=== PATIENT | female | born 1955 | race Hispanic/Latino ===

== ENCOUNTER 2017-05-25 09:09 | Day surgery (SDC) | payer OTHER ==
[2017-05-25] MEDS ORDERED: Lactated Ringer's 1,000 ML IV ONE (09:53)
[2017-05-25] MEDS ORDERED: Lidocaine 1% Inj (20ml) IJ ONE ×3 (10:46→12:40)
[2017-05-25] MEDS ORDERED: Bupivacaine 0.5% 50 ML IJ ONE ×4 (10:46→14:11)
[2017-05-25] MEDS ORDERED: ceFAZolin 1 GM in Sodium Chloride 0.9% 100 ML IVPB ONE (10:46)
--- NOTE | 2017-05-25 10:54 | CP.SDSHP ---
Same Day Surgery H & P - History Proposed Procedure: Right foor dorsal extectomy of 1st met-cuneiform joint with 3rd met osteotomy and 2nd and 3rd hammertoe repair and plantar plate repair Pre-Op Diagnosis: Hammertoe digits, Exostosis of right foot, plantar plate tear on right foot - Allergies Allergies: Allergies No Known Allergies Allergy (Verified 08/12/16 09:39) - Physical Exam Vital Signs: Vital Signs 05/25/17 05/25/17 09:31 09:34 Temperature 98.4 F Pulse Rate 65 65 Respiratory 20 Rate Blood Pressure 141/87 O2 Sat by Pulse 97 Oximetry Mental Status: Alert & Oriented x3 - {Optional Preform as Required} Integument: WNL Ortho: Other - Impression Impression: Pt was seen and examined in SDS. Pt NPO status was confirmed. All Pre-op testing and clearance was in the chart. Pt has exhausted all conservative treatment at this time and is opting for surgical intervention. Pt was explained procedure and post-operative course. All pt's questions were answered to satisfaction. No guarantees were made. Pt understands all risks, benefits and complications of procedure. Pt will follow-up with Dr. Gamez - Date & Time Date: 05/25/17 Time: 10:57 Short Stay Discharge - Short Stay Discharge Admitting Diagnosis/Reason for Visit: M20.4 M25.775 S93.14 Disposition: HOME/ ROUTINE Referrals: Oli Costa MD [Primary Care Provider] - Dick Gamez MD [Staff Provider] - Additional Instructions (Diet, Activity): -Patient in good/stable condition for discharge home. Pt to resume medications per medical reconciliation. Resume regular diet. Please keep dressing clean, dry, & intact to surgical site, use plastic bag over bandage for showering, wear post op shoe at all times when ambulating, call clinic if you see signs of infection (redness, swelling, malodor), please make an appointment to see Dr. Gamez in office/clinic within 1 week for post-op check Progress Note/Discharge Note with Instructions: - Patient evaluated bedside in recovery s/p surgical procedure. - After surgical procedure patient in NAD - (+) Void, (+) Appetite - Capillary refill time <3s and NVSI intact. - Patient denies complaints at this time - Post operative instructions and plan of care explained to patient at length. - Pt. acknowledges understanding. - Patient stable for DC per podiatric surgery
[2017-05-25] MEDS ORDERED: Sodium Chloride 0.9% 1,000 ML IV SCH (11:00)
--- NOTE | 2017-05-25 11:01 | CP.PCM.PN ---
Subjective - Date & Time of Evaluation Date of Evaluation: 05/25/17 Time of Evaluation: 10:58 - Subjective Subjective: 61 y/o female with PMHx of crohn's disease seen at bedside in [facility] for right foot surgery. Pt states that about 2 weeks ago she hit her foot against a walker and her 5th toe is little tender but denies of any severe complications. Pt states that she is having her toes fixed and a bump removed from the right foot. Pt states that she has been NPO since 7PM yesterday. Pt denies of any other pedal complains at this moment. Pt denies of having any reaction to anesthesia as well. PMHx: Crohn's disease PSHx: denies Allergies: N.K.D.A Objective - Vital Signs/Intake and Output Vital Signs (last 24 hours): Temp Pulse Resp BP Pulse Ox 98.4 F 65 20 141/87 97 05/25/17 09:31 05/25/17 09:34 05/25/17 09:31 05/25/17 09:31 05/25/17 09:31 - Medications Medications: Current Medications Cefazolin Sodium 1 gm/ Sodium (Chloride) 100 mls @ 100 mls/hr IVPB ONCE ONE Stop: 05/25/17 11:45 Sodium Chloride (Sodium Chloride 0.9%) 1,000 mls @ 110 mls/hr IV .Q9H6M [facility] Stop: 05/26/17 10:47 - Constitutional Appears: Well, Non-toxic, No Acute Distress - Extremities Exam Additional comments: VASC: DP/PT pulses are palpable 2/4 b/l, RESERVATIONS MANAGER: < 3 sec to all digits, TG: warm to cool from proximal to distal, no pitting or non-pitting edema noted DERM: no interdigital maceration, no open lesions, no erythema, no clinical suspicion of infection NEURO: Protective sensation grossly intact ORTHO: Hammering of the digits with lateral deviation of the 3rd digit noted on the right foot, dorsal exastosis noted at 1st met-cuneiform joint - Neurological Exam Neurological Exam: Alert, Awake, Oriented x3 - Psychiatric Exam Psychiatric exam: Normal Affect, Normal Mood Assessment and Plan - Assessment and Plan (Free Text) Assessment: 61 y/o female seen at bedside in [facility] for Right foot surgery Plan: Pt was seen and examined in SDS Pt NPO status was confirmed All Pre-op testing and clearance was in the chart Pt has exhausted all conservative treatment at this time and is opting for surgical intervention Pt was explained procedure and post-operative course All pt's questions were answered to satisfaction No guarantees were made Pt understands all risks, benefits and complications of procedure Pt will follow-up with Dr. Gamez
[2017-05-25] MEDS ORDERED: Lidocaine 1% Inj (20ml) ONE (11:28)
[2017-05-25] MEDS ORDERED: Propofol 10 mg/ml Inj (20 ML) ONE ×3 (11:32→13:26)
[2017-05-25] MEDS ORDERED: Midazolam 2 MG/2 ML VIAL ONE (12:07)
[2017-05-25] MEDS ORDERED: HYDROmorphone 0.5 mg/0.5 ml ISec IVP PRN (14:29)
[2017-05-25] MEDS ORDERED: Lactated Ringer's 1,000 ML IV SCH (14:29)
[2017-05-25] MEDS ORDERED: Oxycodone/Acetaminophen 5/325 mg Tab PO PRN ×2 (14:30)
--- NOTE | 2017-05-25 14:37 | PCM.SURG1 ---
Surgeon's Initial Post Op Note - Surgeon's Notes Surgeon: Water Filter Cleaner: Dr. Shahid, Dr. Edwards, Dr. Rojas Type of Anesthesia: IV Sedation Anesthesia Administered By: Dr. eHrnandez Pre-Operative Diagnosis: Right foot 2nd and 3rd digit hammer toe, plantar plate repair, painful exostosis to midfoot Operative Findings: see dictation. M: 2.0 14 mm screw, 4.5 K wire (2), 2-0 fuiberwire , 3-0vicryl, 4-0 vicryl, 4-0 nylon, 4-0 monocryl. I: 0.5% Marcain 10 cc Post-Operative Diagnosis: same Operation Performed: 2nd and 3rd digit hammertoe repair on right foot, 3rd metatarsal osteotomy right foot, Exostosis removal of right foot Specimen/Specimens Removed: none Estimated Blood Loss: EBL {In ML}: 0 Blood Products Given: N/A Drains Used: No Drains Post-Op Condition: Good Date of Surgery/Procedure: 05/25/17 Time of Surgery/Procedure: 14:38
[2017-05-25 15:36] VITALS: RESP 18
[2017-05-25 15:38] VITALS: O2SAT 97
[2017-05-25 15:42] VITALS: BMI 26.5
--- NOTE | 2017-05-25 16:01 | RAD ---
PROCEDURE: Right Foot Radiographs. HISTORY: s/p right foot surgery COMPARISON: None. FINDINGS: BONES: No acute fracture. Status post osteotomy distal aspect 2nd and 3rd proximal phalanges. Surgical pins traverse 2nd and 3rd digit. Status post osteotomy 3rd metatarsal head. A screw traverses the 3rd metatarsal head. Status post osteotomy 5th proximal phalanx, versus healing fracture. Small plantar calcaneal spur. JOINTS: Normal. SOFT TISSUES: Normal. OTHER FINDINGS: None. IMPRESSION: Osteotomy 2nd and 3rd proximal phalanges with surgical pins 2nd and 3rd digit. Osteotomy 3rd metatarsal head. Questionable osteotomy versus healing fracture 5th proximal phalanx.
[2017-05-25 16:17] VITALS: BP 108/58; PULSE 60; TEMP 97.6
--- NOTE | 2017-05-27 17:01 | OP ---
PROCEDURE DATE: 05/25/2017 SURGEON: Dr. Gamez. ASSISTANTS: 1. Dr. Neal Shahid. 2. Dr. Edwards. 3. Dr. Rojas. ALL PURPOSE CLERK: Dr. Hernandez. ANESTHESIA: General and local. PREOPERATIVE DIAGNOSES: 1. Right foot second digit painful hammertoe deformity. 2. Right foot third digit painful hammertoe deformity. 3. Right foot third digit plantar plate rupture. 4. Right foot third metatarsal elongation. 5. Right midfoot painful exostosis over first metatarsal base. POSTOPERATIVE DIAGNOSES: 1. Right foot second digit painful hammertoe deformity. 2. Right foot third digit painful hammertoe deformity. 3. Right foot third digit plantar plate rupture. 4. Right foot third metatarsal elongation. 5. Right midfoot painful exostosis over first metatarsal base. PROCEDURE: 1. Right foot second digit PIPJ arthroplasty with K wire fixation. 2. Right foot third digit PIPJ arthroplasty with K wire fixation. 3. Right foot third digit plantar plate repair. 4. Right foot third digit metatarsal Alison osteotomy. 5. Right foot surgical resection of midfoot exostosis. INDICATIONS: The patient is a 61-year-old female patient with the above diagnoses. The patient has exhausted conservative treatment at this time and now requests surgical intervention. The patient signed the consent after careful explanation of risks, benefits, complications and alternatives for surgical procedure. No guarantees were given nor implied, 1 g of Ancef IV was given to the patient half hour prior to the procedure. NPO status was confirmed prior to taking the patient to the OR in preparation. The patient was brought to the operating room and placed on the operating room table in supine position. A well padded pneumatic ankle tourniquet was placed to the patient's right ankle. After the induction of general anesthesia, the patient received a total 20 mL of 1:1 mix of 1% lidocaine plain and 0.5% Marcaine plain in local block fashion to the right foot. Once local anesthesia was achieved, the right lower extremity was then prepped and draped in usual sterile manner. Pneumatic ankle tourniquet was then inflated to 250 mmHg and the procedure began. PROCEDURE #1: Right foot second digit arthroplasty with K-wire fixation. Attention was directed to the second digit of the patient's right foot which was noted to be contracted. Utilizing #15 blade, an approximately 3 cm linear incision was made on the dorsal aspect of the proximal intraphalangeal joint of the right second digit. Sharp dissection was carried down through the deep tissues, being careful to identify and retract all vital neurovascular structures. All bleeders were ligated and cauterized as necessary. At this time, a transverse tenotomy capsulotomy was performed to the proximal intraphalangeal joint of the right second digit and the head of the proximal phalanx was freed of its capsular and ligamentous attachments. Next, utilizing an oscillating bone saw, the head of the proximal phalanx was resected and passed off from the operative site. Next, utilizing a wire drill, 0.045 K-wire was inserted into the second digit from the base of the middle phalanx into the distal end of the digit. Next, this K wire was then retro-drilled from the distal end of the digit into the proximal phalanx, not passing the metatarsophalangeal joint. The K wire was then cut and bent at its distal end with placement of a plastic cath. The wound site was flushed with copious amounts of normal sterile saline. PROCEDURE #2: Right foot third digit arthroplasty with K wire fixation. Attention was directed to the third digit of the patient's right foot which was noted to be contracted. Utilizing #15 blade, an approximately 3 cm linear incision was made on the dorsal aspect of the proximal intraphalangeal joint of the right third digit. Sharp dissection was carried down through the deep tissues being careful to identify and retract all vital neurovascular structures. All bleeders were ligated and cauterized as necessary. At this time a transverse tenotomy capsulotomy was performed to the proximal intraphalangeal joint of the right third digit and the head of the proximal phalanx was freed of its capsular and ligamentous attachments. Next, utilizing an oscillating bone saw, the head of the proximal phalanx was resected and passed off from the operative site. Next, utilizing a wire drill, 0.045 K wire was inserted into the third digit from the base of the middle phalanx into the distal end of the digit. Next, this K wire was then retro-drilled from the distal end of the digit into the proximal phalanx, not passing the metatarsophalangeal joint. The K wire was then cut and bent at its distal end with placement of a plastic cath. The wound site was flushed with copious amounts of normal sterile saline. PROCEDURE #3: Right foot third digit plantar plate repair. Next, attention was then directed to the dorsal aspect of the right foot third metatarsal. Utilizing #15 blade, approximately 4 cm longitudinal incision was made over the dorsal aspect of the right third MTPJ. The incision was deepened through the subcutaneous tissue with care being taken to identify and retract all vital neurovascular structures. All bleeders were cauterized and ligated as necessary. At this time, a linear periosteal and capsular incision was made overlying the third MTPJ of the right foot. The periosteal and capsular structures were then carefully dissected free of its osseous attachments and reflected medially and laterally exposing the head of the third metatarsal. Then, utilizing a sagittal saw, a distal dorsal to proximal plantar osteotomy was created in the distal dorsal aspect of the third metatarsal head. Next, the distal fragment of the right third metatarsal was pushed proximally to reveal the damaged plantar plate. Plantar plate of the right third metatarsal was visualized to be split in half longitudinal. Next, utilizing 2-0 FiberWire, the plantar plate prepared in one piece with two retention suture technique. PROCEDURE #4: Right foot third digit metatarsal Alison osteotomy. Next, utilizing wire public transit trolley driver, 0.045 K-wire was driven into the head of the right third metatarsal from dorsal to plantar aspect to serve as a temporary fixation. At this point, the head of the third metatarsal was rotated in a more corrected position. Next, utilizing AO print, a 2.0 x14 mm screw was inserted into the head of the right third metatarsal with excellent compression. At this point, the position and orientation of the right third digit was assessed and was noted to be excellent. PROCEDURE #5: Right foot surgical resection of the midfoot exostosis. Attention was then directed to the right foot dorsal-medial aspect of the first metatarsal plates where bony exostosis was palpated. Utilizing #15 blade, a longitudinal incision of approximately 4 cm was made over the right midfoot exostosis. The dissection was continued through the subcutaneous tissue using sharp and blunt dissection all the way down to the bone. Care was taken to identify and retract all vital neurovascular structures. All bleeders were cauterized and ligated as necessary. At this point, a prominent bony exostosis was palpated and visualized on the dorsal aspect of the first metatarsal base. Next, utilizing an oscillating bone saw, the bony exostosis was resected and the surface was smoothed down. Next, all 4 incision sites on the right foot were flushed with copious amounts of normal sterile saline. The subcutaneous tissues of the third MTPJ and the first metatarsal base were then re-approximated using 3-0 Vicryl in a simple suture technique. The skin of these two sites was then reapproximated with 4-0 Monocryl in running stitch manner. The two other surgical incision sites to third and second digit PIPJs were then reapproximated with 4-0 Nylon in simple suture technique; 10 mL of 0.5% Marcaine plain was injected into the right foot along the incision site. Right foot was then dressed with Betadine-soaked adaptic and Elastoplast. The attending was present during the entire case. POSTOPERATIVE CONDITION: The patient tolerated the anesthesia and procedure well, and was escorted to recovery room with vital signs stable and neurovascular status intact to the right foot. This patient will be partial weightbearing to the heel in a surgical shoe and will follow up with Dr. Gamez. Neal Shahid DPM MTDEdenilson
== END 2017-05-25 16:40 | disposition home or self-care (01) ==
LOC: H.OPSURG 09:09
PROVIDERS: ATTEND Podiatrist
DX: M20.41 Other hammer toe(s) (acquired), right foot (principal); M89.8X7 Other specified disorders of bone, ankle and foot; M89.9 Disorder of bone, unspecified

== ENCOUNTER 2018-11-02 08:43 | Day surgery (SDC) | payer MEDICARE, OTHER ==
[2018-11-02] MEDS ORDERED: Lactated Ringer's 500 ML IV ONE (09:22)
[2018-11-02] MEDS ORDERED: Propofol 10 mg/ml Inj (20 ML) ONE (10:58)
[2018-11-02 11:20] VITALS: TEMP 97.3
[2018-11-02 11:35] VITALS: BP 101/78; PULSE 60; RESP 16; O2SAT 99
== END 2018-11-02 12:20 | disposition home or self-care (01) ==
LOC: EDSEX 08:43 → H.ENDO 08:43 → MERGE 08:43 → H.ENDO 12:20
PROVIDERS: ATTEND Internal Medicine Gastroenterology
DX: K51.00 Ulcerative (chronic) pancolitis without complications (principal); K63.89 Other specified diseases of intestine; K52.9 Noninfective gastroenteritis and colitis, unspecified; K92.2 Gastrointestinal hemorrhage, unspecified
CPT/HCPCS: 45380; 88305; J2704; J7120